=== PATIENT | female | born 2000 | race Caucasian/White ===

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

== ENCOUNTER 2020-01-23 11:49 | Emergency (ER) | payer OTHER ==
--- NOTE | 2020-01-23 12:34 | RAD ---
Exam:4 views right knee HISTORY: Pain. Injury. Trauma. COMPARISON: 10/11/2017 FINDINGS: Preserved joint spaces. No joint effusion. No malalignment or fracture. IMPRESSION: No posttraumatic change.
== END 2020-01-23 13:00 | disposition home or self-care (01) ==
LOC: MADERS 11:49
DX: S80.01XA Contusion of right knee, initial encounter (principal); W01.0XXA Fall on same level from slipping, tripping and stumbling without subsequent striking against object, initial encounter

== ENCOUNTER 2022-05-13 14:53 | Emergency (ER) | payer OTHER ==
[2022-05-13 15:53] LABS: Bilirubin Negative (Negative); Blood, Urine Trace (Negative); Clarity Clear (Clear); Glucose, Urine (Dipstick) Negative (Negative); Ketone, Urine Negative (Negative); Leukocyte Negative (Negative); Nitrite Negative (Negative); Protein, Urine (Dipstick) Negative (Neg-Trace); Specific Gravity, Urine 1.025 (1.005-1.030); Urobilinogen 0.2 mg/dL (Less than 2); pH, Urine 5.5 (5.0-9.0)
[2022-05-13 15:56] LABS: Pregnancy Test - Urine (BHCG) Negative (Negative); Pregu Control Background? CLEAR/WHITE (CLR/WHITE); Pregu Control Bar Appear? YES (CONTROL BAR); Specific Gravity 1.025 (1.002-1.036)
[2022-05-13] MEDS ORDERED: Ondansetron ODT 4 MG TAB ONE (16:04)
[2022-05-13 16:06] LABS: Bacteria/HPF Rare-Few HPF (None Seen); RBC/HPF 0-3 HPF (0-3); WBC/HPF 0-3 HPF (0-3)
== END 2022-05-13 16:12 | disposition home or self-care (01) ==
LOC: MADERS 14:53
DX: U07.1 COVID-19 (principal); E66.9 Obesity, unspecified; Z68.45 Body mass index [BMI] 70 or greater, adult
CPT/HCPCS: 81003; 81015; 81025; 99283; Q0162; U0003; U0005

== ENCOUNTER 2024-05-14 08:20 | Emergency (ER) | payer SELFPAY | END 2024-05-14 09:26 | disposition home or self-care (01) | LOC: MADERS 08:20 | DX: J30.9 Allergic rhinitis, unspecified (principal); L30.9 Dermatitis, unspecified; R21 Rash and other nonspecific skin eruption | CPT/HCPCS: 99282 ==